=== PATIENT | female | born 1965 | race Caucasian/White ===

== ENCOUNTER 2017-07-31 10:01 | Emergency (ER) | payer OTHER ==
[~2017-07-31] VITALS: Ht 154.9 cm; Wt 86.2 kg
--- NOTE | 2017-07-31 10:02 | NUR ---
PT BIBA BLS TO ER BED 04
[2017-07-31 10:05] VITALS: BP 114/66
--- NOTE | 2017-07-31 10:09 | NUR ---
PATIENT PRESENTS TO ED WITH awoke this am with severe epigastric sharp pain with nausea . PT STATES . DENIES V/D; SKIN IS PINK/WARM/DRY; AAOX4 WITH EVEN AND STEADY GAIT; LUNGS CLEAR BL; HR EVEN AND REGULAR; PT DENIES ANY FEVER, CP, SOB, OR COUGH AT THIS TIME; PATIENT STATES PAIN OF 10/10 AT THIS TIME; VSS; PATIENT POSITIONED FOR COMFORT; HOB ELEVATED; BEDRAILS UP X2; BED DOWN. ER MD MADE AWARE OF PT STATUS.
[2017-07-31] MEDS: KETOROLAC 30 MG/ML VIAL IVP ONE (10:16)
--- NOTE | 2017-07-31 10:23 | NUR ---
MEDICATED WRITTEN---PT ADMITS TO HAVING SOME RELIEF S/P TORADOL PT WILL PROVIDE URINE SAMPLE
[2017-07-31] MEDS: DICYCLOMINE HCL LIQUID 20 MG, ALUMINUM HYD/MAG/SIMETHICONE 30 ML, LIDOCAINE VISCOUS 2% ... PO ONE ×3 (11:01)
--- NOTE | 2017-07-31 11:30 | NUR ---
Patient discharged with v/s stable. Written and verbal after care instructions given and explained. Patient alert, oriented and verbalized understanding of instructions. Ambulatory with to car. All questions addressed prior to discharge. ID band removed. Patient advised to follow up with PMD. Rx of MOTRIN/ZOFRAN/PRILOSEC given. Patient educated on indication of medication including possible reaction and side effects. Opportunity to ask questions provided and answered.
[2017-07-31 11:31] VITALS: BP 128/81
== END 2017-07-31 11:30 | disposition home or self-care (01) ==
LOC: MED 10:01
DX: R10.13 Epigastric pain (principal); R11.0 Nausea; F17.210 Nicotine dependence, cigarettes, uncomplicated
CPT/HCPCS: 81002; 81025; 96374; 99284; J1885

== ENCOUNTER 2018-06-04 11:26 | Emergency (ER) | payer OTHER ==
[~2018-06-04] VITALS: Ht 160 cm; Wt 74.2 kg
--- NOTE | 2018-06-04 11:45 | NUR ---
Pelon cordova in [facility] - 06/04/18 at 1153 by MEDRJJ PT AMB W/O TO ER BED 12
[2018-06-04 11:46] VITALS: BP 123/79
--- NOTE | 2018-06-04 11:51 | NUR ---
Patient to bed 12. RN evaluating patient at bedside.
--- NOTE | 2018-06-04 11:51 | NUR ---
BIB SELF. AAO X4 C/O OF L LEG STABBING PAIN RADIATING TO L HIP 10/10 X 2 WEEKS. DENIES TRAUMA OR INJURY. CAP REFILL <3 SECS. STEADY AMBULATE. HOB UP. BED RAILS UP X1. ON LOW BED POSITION, LOCKED. MD JEFFRIES MADE AWARE OF PT STATUS. Addendum: 06/04/18 at 1206 by [employer] BIB SELF. AAO X4 C/O OF L LEG STABBING PAIN RADIATING TO L HIP 10/10 X 2 WEEKS. DENIES TRAUMA OR INJURY. CAP REFILL <3 SECS. NO DISCOLORATION. STEADY AMBULATION. HOB UP. BED RAILS UP X1. ON LOW BED POSITION, LOCKED. MD JEFFRIES MADE AWARE OF PT STATUS.
[2018-06-04] MEDS ORDERED: IBUP-2213 PO (11:54)
--- NOTE | 2018-06-04 12:23 | NUR ---
Dr. Anthony evaluating patient at bedside.
[2018-06-04] MEDS ORDERED: KETOROLAC 60 MG/2 ML VIAL IM ONE (12:35)
[2018-06-04] MEDS ORDERED: traMADol 50 MG TAB PO ONE (12:35)
[2018-06-04] MEDS ORDERED: hydrOXYzine HCL 25 MG TAB PO ONE (12:35)
--- NOTE | 2018-06-04 12:51 | NUR ---
Patient returned from XRAY. RN re-evaluating patient at bedside.
--- NOTE | 2018-06-04 13:05 | NUR ---
pt was not able to provide urine; encourage to attempt again
[2018-06-04 13:39] LABS: APPEARANCE,URINE CLEAR (CLEAR); BILIRUBIN,URINE NEGATIVE (NEGATIVE); BLOOD, URINE TRACE-I (NEGATIVE); COLOR,URINE YELLOW (YELLOW); LEUKOCYTE ESTERASE ,URINE NEGATIVE (NEGATIVE); NITRITE, URINE NEGATIVE (NEGATIVE); UGLUCOSE NEGATIVE (NEGATIVE)
[2018-06-04 13:51] LABS: WBC,URINE 0-5 /HPF (0-5)
[2018-06-04 13:53] VITALS: BP 121/72
== END 2018-06-04 13:54 | disposition home or self-care (01) ==
LOC: MED 11:26
DX: M54.42 Lumbago with sciatica, left side (principal); M54.41 Lumbago with sciatica, right side; K59.00 Constipation, unspecified; Z79.899 Other long term (current) drug therapy
CPT/HCPCS: 72100; 81001; 96372; 99284; J1885

== ENCOUNTER 2018-09-07 08:47 | Emergency (ER) | payer OTHER ==
[~2018-09-07] VITALS: Ht 158.8 cm; Wt 74.8 kg
[~2018-09-07 08:47] MED LIST: IBUP-2213 PO
[2018-09-07 08:50] VITALS: BP 110/73
--- NOTE | 2018-09-07 08:54 | NUR ---
PT AMB TO BED 11 WITH STEADY GAIT
[2018-09-07] MEDS ORDERED: cefTRIAXone 2,000 MG in DEXTROSE 5% 100 ML IV ONE (09:05)
[2018-09-07] MEDS ORDERED: NACL 0.9% 1,000 ML IV ONE (09:05)
[2018-09-07] MEDS ORDERED: ACETAMINOPHEN EXTRA STRENGTH 500 MG TAB PO ONE (09:05)
[2018-09-07] MEDS ORDERED: MORPHINE SULFATE 4 MG/ML SYR IVP ONE (09:05)
[2018-09-07] MEDS ORDERED: KETOROLAC 15 MG/ML VIAL IVP ONE (09:05)
--- NOTE | 2018-09-07 09:09 | NUR ---
PT BIB SELF TO THE ED WITH THE CHIEF C/O LOWER BACK PAIN RADIATING TO LOWER ABDOMEN SINCE YESTERDAY. PT REPORTS PAIN DURING URINATION. DENIES BLOOD IN URINE. PT HAD FEVER 102 DEGREE F THIS MORNING. TOOK IBUPROFEN AROUND 0500 AM. AFEBRILE AT THIS TIME. DENIES N/V/D. DENIES ANY OTHER PROBLEM NOW. STATES PAIN 11/13.
--- NOTE | 2018-09-07 09:11 | NUR ---
PT EVALUATED BY MERVIN LEA.
[2018-09-07] MEDS ORDERED: ONDANSETRON 4 MG/2 ML VIAL IVP ONE (09:15)
[2018-09-07] MEDS ORDERED: cefTRIAXone 2,000 MG VIAL ONE (09:27)
[2018-09-07 09:37] LABS: BASOPHILS % (AUTO) 0.4 % (0.0-2.0); EOSINOPHILS # (AUTO) 0.2 K/uL (0-0.4); EOSINOPHILS % (AUTO) 2.5 % (0.0-4.0); HEMATOCRIT 38.6 % (36-48); HEMOGLOBIN 12.7 g/dL (12.0-16.0); LYMPHOCYTES # (AUTO) 2.3 K/uL (2.5-16.5); LYMPHOCYTES % (AUTO) 32.7 % (20.5-51.1); MEAN CORPUSCULAR HEMOGLOBIN 28 pg (27-31); MEAN CORPUSCULAR HGB CONC 33 g/dL (33-37); MEAN CORPUSCULAR VOLUME 86.2 fL (80-94); MONOCYTES # (AUTO) 0.5 K/uL (0.8-1.0); MONOCYTES % (AUTO) 7.1 % (1.7-9.3); NEUTROPHILS % (AUTO) 57.3 % (42.2-75.2); PLATELET COUNT (AUTO) 201 K/uL (140-450); RED BLOOD CELL COUNT(AUTO) 4.48 MIL/uL (4.20-5.40); RED CELL DISTRIBUTION WIDTH 14.3 % (11.6-13.7)
[2018-09-07 09:43] LABS: APPEARANCE,URINE HAZY (CLEAR); BILIRUBIN,URINE NEGATIVE (NEGATIVE); BLOOD, URINE 2+ (NEGATIVE); COLOR,URINE YELLOW (YELLOW); LEUKOCYTE ESTERASE ,URINE NEGATIVE (NEGATIVE); NITRITE, URINE NEGATIVE (NEGATIVE); PH,URINE 5.5 (5.0-9.0); UGLUCOSE NEGATIVE (NEGATIVE)
[2018-09-07 09:45] LABS: ANION GAP 15.8 (8-16); CARBON DIOXIDE 20.9 mmol/L (21-32); CREATININE 0.6 mg/dL (0.6-1.3); POTASSIUM 3.7 mmol/L (3.5-5.1)
[2018-09-07 09:50] LABS: WBC,URINE 0-5 /HPF (0-5)
[2018-09-07 09:51] LABS: ALBUMIN 3.2 g/dL (3.4-5.0); TOTAL BILIRUBIN 0.3 mg/dL (0.0-1.0)
--- NOTE | 2018-09-07 10:45 | NUR ---
PT APPEARS TO BE RELAXED RESTING IN BED. STATES PT HAS GONE NOW.
--- NOTE | 2018-09-07 10:51 | NUR ---
PT BEING RE-EVALUATED BY MERVIN LEA AT THIS TIME.
--- NOTE | 2018-09-07 11:35 | NUR ---
Patient discharged with v/s stable. Written and verbal after care instructions given and explained. Patient alert, oriented and verbalized understanding of instructions. Ambulatory with steady gait. All questions addressed prior to discharge. ID band removed. Patient advised to follow up with PMD. Rx of LEVOFLOXACIN given. Patient educated on indication of medication including possible reaction and side effects. Opportunity to ask questions provided and answered.
[2018-09-07 11:36] VITALS: BP 126/70
== END 2018-09-07 11:35 | disposition home or self-care (01) ==
LOC: MED 08:47
DX: R10.9 Unspecified abdominal pain (principal); R50.9 Fever, unspecified; R11.0 Nausea; R30.0 Dysuria; Z79.899 Other long term (current) drug therapy
CPT/HCPCS: 36415; 80053; 81001; 81025; 83690; 85025; 87040; 87086; 96365; 96375; 99283; J0696; J1885; J2270; J2405; J7030

== ENCOUNTER 2019-09-05 08:26 | Emergency (ER) | payer OTHER ==
[~2019-09-05] VITALS: Ht 154.9 cm; Wt 83.0 kg
[2019-09-05 08:29] VITALS: BP 108/72
--- NOTE | 2019-09-05 08:34 | NUR ---
PT AMBULATED TO BED 6.
--- NOTE | 2019-09-05 08:59 | NUR ---
54 Y/O FEMALE C/O BILAT FOOT PAIN ON BOTTOM OF FEET. PT STATES PAIN HAS BEEN ON/OFF FOR ONE WEEK, BUT LAST NIGHT GOT WORSE, TO THE POINT WHERE PT CAN NOT WALK. SKIN INTACT. CALLUSES NOTED ON BOTTOM OF BILAT FEET. 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
[2019-09-05] MEDS ORDERED: IBUPROFEN 600 MG TAB PO ONE (09:20)
[2019-09-05 09:39] VITALS: BP 108/72
== END 2019-09-05 09:39 | disposition home or self-care (01) ==
LOC: MED 08:26
DX: M72.2 Plantar fascial fibromatosis (principal)
CPT/HCPCS: 99282

== ENCOUNTER 2020-03-25 14:24 | Inpatient (IN) | payer OTHER, SELFPAY ==
[~2020-03-25] VITALS: Ht 154.9 cm; Wt 71.7 kg
[2020-03-25 14:33] VITALS: BP 114/60
--- NOTE | 2020-03-25 14:39 | NUR ---
Patient ambulated to bed 11. RN evaluating patient at bedside.
--- NOTE | 2020-03-25 14:51 | NUR ---
54 Y/O FEMALE C/O RIGHT LOWER QUADRANT PAIN X1 WEEK. SUDDEN ONSET. DENIES ANY N/V/D. LAST BM WAS 3 HOURS AGO AND NORMAL PER PATIENT. BOWEL SOUNDS NORMOACTIVE IN ALL QUADRANTS. ABD IS TENDER TO TOUCH, NON DISTENDED, NO REBOUND TENDERNESS NOTED. DENIES ANY COUGH/SOB/FEVER. PATIENT HAS BEEN SELF MEDICATING WITH IBUPROFEN AT HOME WITH NO RELIEF. SKIN IS COOL/DRY. CAP REFILL <3. RESP EVEN AND UNLABORED
[2020-03-25] MEDS ORDERED: NACL 0.9% 1,000 ML IV ONE (15:25)
[2020-03-25] MEDS ORDERED: KETOROLAC 30 MG/ML VIAL IVP ONE (15:25)
--- NOTE | 2020-03-25 15:54 | NUR ---
CT CONSENT SIGNED AT BEDSIDE. LABS DRAWN AND GIVEN TO MEDICAL COLLECTOR
[2020-03-25 16:01] LABS: BASOPHILS # (AUTO) 0.1 K/uL (0.00-0.22); BASOPHILS % (AUTO) 0.9 % (0.0-2.0); EOSINOPHILS # (AUTO) 0.4 K/uL (0-0.4); HEMOGLOBIN 12.9 g/dL (12.0-16.0); LYMPHOCYTES # (AUTO) 3.1 K/uL (2.5-16.5); LYMPHOCYTES % (AUTO) 33.7 % (20.5-51.1); MEAN CORPUSCULAR HEMOGLOBIN 28 pg (27-31); MEAN CORPUSCULAR HGB CONC 33 g/dL (33-37); MEAN CORPUSCULAR VOLUME 86.2 fL (80-94); MONOCYTES # (AUTO) 0.6 K/uL (0.8-1.0); MONOCYTES % (AUTO) 6.1 % (1.7-9.3); NEUTROPHILS % (AUTO) 55.3 % (42.2-75.2); PLATELET COUNT (AUTO) 189 K/uL (140-450); RED BLOOD CELL COUNT(AUTO) 4.53 MIL/uL (4.20-5.40); RED CELL DISTRIBUTION WIDTH 14.5 % (11.6-13.7); WHITE BLOOD COUNT (AUTO) 9.1 K/uL (4.8-10.8)
[2020-03-25 16:04] LABS: APPEARANCE,URINE HAZY (CLEAR); BILIRUBIN,URINE NEGATIVE (NEGATIVE); BLOOD, URINE 1+ (NEGATIVE); COLOR,URINE YELLOW (YELLOW); LEUKOCYTE ESTERASE ,URINE NEGATIVE (NEGATIVE); NITRITE, URINE POSITIVE (NEGATIVE); UGLUCOSE NEGATIVE (NEGATIVE)
[2020-03-25 16:18] LABS: PROTHROMBIN TIME 9.7 secs (10.8-13.4)
[2020-03-25 16:22] LABS: RBC,URINE 0-5 /HPF (0-5); WBC,URINE 0-5 /HPF (0-5)
[2020-03-25] MEDS ORDERED: MORPHINE SULFATE 4 MG/ML SYR IVP ONE (16:45)
[2020-03-25] MEDS ORDERED: ONDANSETRON 4 MG/2 ML VIAL IVP ONE (16:45)
[2020-03-25 17:25] LABS: ALBUMIN 3.5 g/dL (3.4-5.0); ANION GAP 15.6 (8-16); CARBON DIOXIDE 21.8 mmol/L (21-32); CREATININE 0.6 mg/dL (0.6-1.3); POTASSIUM 3.4 mmol/L (3.5-5.1); TOTAL BILIRUBIN 0.2 mg/dL (0.0-1.0)
--- NOTE | 2020-03-25 17:42 | NUR ---
PT TAKEN TO CT VIA W/C.
[2020-03-25] MEDS ORDERED: ONDANSETRON 4 MG/2 ML VIAL IVP PRN ×3 (19:25→21:05)
--- NOTE | 2020-03-25 19:28 | NUR ---
RECIVED REPORT FROM HERO CARR. TRANSFER OF CARE.
--- NOTE | 2020-03-25 19:32 | NUR ---
DR. ELLIS AT BEDSIDE.
--- NOTE | 2020-03-25 20:03 | NUR ---
RADHA SWAB COLLECTED AND GIVEN TO FREIGHT TRUCKER.
--- NOTE | 2020-03-25 20:19 | NUR ---
PT LAST ORAL INTAKE WAS AT 1330, PER PT
--- NOTE | 2020-03-25 20:44 | NUR ---
DR. ROSALES AT BEDSIDE EXPLAIN SURGICAL PROCEDURE. CONSENT SIGNED.
--- NOTE | 2020-03-25 20:52 | NUR ---
GAVE REPORT TO ANAHI GALDAMEZ RN, TRANSFER OF CARE GIVEN. PATIENT TAKEN TO OR FOR SURGERY.
[2020-03-25] MEDS ORDERED: LIDOCAINE 1% 500 MG/50 ML VIAL ONE (20:54)
[2020-03-25] MEDS ORDERED: BUPIVACAINE-MPF/EPI 0.25% 10 ML VIAL INJ ONE (20:54)
[2020-03-25] MEDS ORDERED: PIPERACILLIN/TAZOBACTAM 3.375 GM VIAL IV ONE (20:59)
[2020-03-25] MEDS ORDERED: HYDROmorphone 1 MG/ML AMP IVP PRN (21:00)
[2020-03-25] MEDS ORDERED: HYDROcodone/APAP 5/325 MG 1 TAB TAB PO PRN (21:00)
[2020-03-25] MEDS ORDERED: MEPERIDINE 25 MG/ML SYR IVP PRN (21:05)
[2020-03-25] MEDS ORDERED: diphenhydrAMINE 50 MG/ML VIAL IVP PRN (21:05)
[2020-03-25] MEDS ORDERED: SUGAMMADEX SODIUM 200 MG/2 ML VIAL IV ONE (21:18)
[2020-03-25] MEDS ORDERED: SUCCINYLCHOLINE CHLORIDE 200 MG/10 ML VIAL IVP ONE (21:18)
[2020-03-25] MEDS ORDERED: PROPOFOL 200 MG/20 ML VIAL IV ONE (21:18)
[2020-03-25] MEDS ORDERED: ROCURONIUM 50 MG/5 ML VIAL IV ONE (21:18)
[2020-03-25] MEDS ORDERED: SEVOFLURANE 250 ML BTL INH ONE (21:18)
[2020-03-25] MEDS ORDERED: MIDAZOLAM 2 MG/2 ML VIAL ONE (21:18)
[2020-03-25] MEDS ORDERED: METOCLOPRAMIDE 10 MG/2 ML INJ VIAL ONE (21:18)
[2020-03-25] MEDS ORDERED: fentaNYL citrate 0.05 MG/ML VIAL ONE (21:18)
[2020-03-25] MEDS ORDERED: DEXAMETHASONE 4 MG/ML VIAL ONE (21:18)
[2020-03-25] MEDS ORDERED: LIDOCAINE 2% 100 MG/5 ML SYR IVP ONE (21:18)
[2020-03-25] MEDS ORDERED: ONDANSETRON 4 MG/2 ML VIAL ONE (21:18)
[2020-03-25] MEDS ORDERED: HYDROmorphone PFS 2 MG/ML SYR ONE (22:40)
[2020-03-25] MEDS: HYDROmorphone 1 MG/ML AMP IVP PRN ×2 (22:43→22:53)
--- NOTE | 2020-03-25 23:23 | NUR ---
RECEIVED BEDSIDE REPORT FROM HARRIS MACHINE STAPLER. PT IS AAOX4. ARABIC V[place]UELAN SPEAKING. RESPIRATIONS ARE EQUAL AND UNLABORED. C/O ABD PAIN X5 DAYS. DX A APPENDICITIS. PT IS S/P LAP APPY WITH 3 SURGICAL INCISION CLOSED WITH DERMA WALLS NO S/S OF INFECTIONS NO DRAINAGE NOTED. ABD IS SOFT, BOWEL SOUNDS ARE ACTIVE X4. LBM YESTERDAY. PICTURES TAKEN NOW. PT IS FROM HOME DENIES ANY RECENT TRAVEL OR CONTACT WITH SICK FAMILY OR FRIENDS.RESPIRATIONS ARE EQUAL AND UNLABORED ON ROOM AIR. PT ON STANDARD ISOLATION. MRSA SWAB OBTAINED AND SENT TO LAB. ORIENTED PT TO ROOM, STAFF, CALL LIGHT, BROUGHT PT ICE CHIPS PER REQUEST. IV ON RAC 20G SL. POC DISCUSSED WITH PT. CALL LIGHT IS WITHIN REACH. WILL CONTINUE TO MONITOR.
[2020-03-25] MEDS: NACL 0.9% 1,000 ML IV SCH (23:53)
[2020-03-25] MEDS: LACTATED RINGERS 1,000 ML IV SCH (23:54)
[2020-03-25] MEDS: PIPERACILLIN/TAZOBACTAM 3.375 GM in DEXTROSE 5% 50 ML IV SCH (23:54)
[2020-03-26] VITALS: BP 91/52
[2020-03-26] MEDS: MORPHINE SULFATE 2 MG/ML SYR IVP PRN ×2 (00:02→10:26)
[2020-03-26] MEDS: FAMOTIDINE 20 MG/2 ML VIAL IVP SCH ×2 (00:02→08:46)
--- NOTE | 2020-03-26 00:02 | NUR ---
ADMINISTERED PRN MORPHINE FOR ABD PAIN 6/10 PER ORDERS.PT TOLERATED WELL. ALL SAFETY MEASURES ARE IN PLACE. WILL CONTINUE TO MONITOR.
--- NOTE | 2020-03-26 02:36 | NUR ---
ROUNDS MADE. PT IS SLEEPING COMFORTABLY IN BED WITH EYES CLOSED. CHEST RISE AND FALL NOTED. NO S/S OF DISTRESS. WILL CONTINUE TO MONITOR.
[2020-03-26] MEDS ORDERED: PIPERACILLIN/TAZOBACTAM 3.375 GM VIAL IV ONE (03:51)
[2020-03-26 04:00] VITALS: BP 90/50
[2020-03-26] MEDS: LACTATED RINGERS 1,000 ML IV SCH ×2 (04:00→13:45)
[2020-03-26] MEDS: PIPERACILLIN/TAZOBACTAM 3.375 GM in DEXTROSE 5% 50 ML IV SCH ×2 (04:00→13:29)
[2020-03-26] MEDS: NACL 0.9% 1,000 ML IV SCH ×2 (04:00→15:28)
--- NOTE | 2020-03-26 04:00 | NUR ---
VITAL SIGNS ARE WITHIN NORMAL LIMITS. ALL SAFETY MEASURES ARE IN PLACE. WILL CONTINUE TO MONITOR.
--- NOTE | 2020-03-26 06:02 | NUR ---
ASSISTED PT TO BATHROOM PT DENIES ANY DIZZINESS, LIGHTHEADEDNESS. PT WITH ABD PAIN 6/10 ADMINISTERED PRN NORCO PER ORDERS. PT TOLERATED WELL. CALL LIGHT IS WITHIN REACH.
--- NOTE | 2020-03-26 07:36 | NUR ---
GAVE BEDSIDE REPORT TO DAY RN. PT ENDORSED IN STABLE CONDITION.
--- NOTE | 2020-03-26 07:42 | NUR ---
RECEIVED REPORT FROM NIGHTSHIFT NURSE. PT RESTING IN BED. ABLE TO MAKE NEEDS KNOWN. RESPIRATIONS EVEN AND UNLABORED WITH NO SOB OR RESPIRATORY DISTRESS. SKIN WARM AND DRY TO TOUCH. IV SITE IN RAC 20G IS CLEAN, DRY, AND INTACT. SAFETY MEASURES IN PLACE. WILL CONTINUE TO MONITOR
[2020-03-26 08:00] VITALS: BP 114/71
[2020-03-26] MEDS ORDERED: ENOXAPARIN 40 MG/0.4 ML SYR SUBQ SCH (09:00)
--- NOTE | 2020-03-26 09:01 | NUR ---
ADMINISTERED SCHED MED PRESCRIBED PER MD ORDER. PT TOLERATED WELL. MEDICATION EDUCATION PERFORMED. PT VERBALIZED UNDERSTANDING. SAFETY MEASURES IN PLACE. WILL CONTINUE TO MONITOR
[2020-03-26 09:16] LABS: BASOPHILS % (AUTO) 0.1 % (0.0-2.0); HEMOGLOBIN 11.8 g/dL (12.0-16.0); LYMPHOCYTES # (AUTO) 0.7 K/uL (2.5-16.5); LYMPHOCYTES % (AUTO) 7.5 % (20.5-51.1); MEAN CORPUSCULAR HEMOGLOBIN 28 pg (27-31); MEAN CORPUSCULAR HGB CONC 33 g/dL (33-37); MONOCYTES # (AUTO) 0.1 K/uL (0.8-1.0); MONOCYTES % (AUTO) 1.1 % (1.7-9.3); NEUTROPHILS # (AUTO) 8.9 K/uL (1.8-7.7); NEUTROPHILS % (AUTO) 91.3 % (42.2-75.2); PLATELET COUNT (AUTO) 161 K/uL (140-450); RED BLOOD CELL COUNT(AUTO) 4.13 MIL/uL (4.20-5.40); RED CELL DISTRIBUTION WIDTH 14.5 % (11.6-13.7); WHITE BLOOD COUNT (AUTO) 9.8 K/uL (4.8-10.8)
--- NOTE | 2020-03-26 09:46 | NUR ---
PATIENT HAS BEEN SCREENED AND CATEGORIZED LOW NUTRITION RISK. PATIENT WILL BE SEEN WITHIN 7 DAYS OF ADMISSION. 03/31/[address]
[2020-03-26 10:23] LABS: ALBUMIN 3.1 g/dL (3.4-5.0); ANION GAP 15.2 (8-16); CARBON DIOXIDE 20.7 mmol/L (21-32); CREATININE 0.7 mg/dL (0.6-1.3); MAGNESIUM 2.1 mg/dL (1.8-2.4); POTASSIUM 3.9 mmol/L (3.5-5.1); TOTAL BILIRUBIN 0.5 mg/dL (0.0-1.0)
--- NOTE | 2020-03-26 10:26 | NUR ---
PT COMPLAINED OF SEVERE PAIN. PRN MORPHINE ADMINISTERED PRESCRIBED PER MD ORDER. MEDICATION EDUCATION PERFORMED. PT VERBALIZED UNDERSTANDING. SAFETY MEASURES IN PLACE. WILL CONTINUE TO MONITOR
--- NOTE | 2020-03-26 10:33 | NUR ---
SOCIAL WORK NOTE: Patient's Orientation Unable To Assess Information Provided By EVELINA SANZ - DAUGHTER Comments SW WAS UNABLE TO MEET PATIENT AT BEDSIDE. SW CONTACTED PATIENT'S WHO PASSED PHONE TO PATIENT'S DAUGHTER. SW COMPLETED ASSESSMENT WITH DAUGHTER. Yardage Control Operator, Realtionship and Phone Number CHUCKIE SANZ [phone] EVELINA SANZ DAUGHTER [phone] Healthcare Power of Internship Coordinator No Does Patient Have a POLST No Identifying Problems No Social Work Triggers Is A Social Work Consult Needed No Mandate Report Filed No Explanation Of Identifying Problems PATIENT IS A 54-YEAR-OLD FEMALE ADMITTED FOR APPENDICITIS. PATIENT HAS NO REPORTED PMHX. Admitted From Home Pre-Admission Level Of Functioning Status Independent/Ambulatory Prior Resources/Services Used In Last 12 Months No Prior Resources Used Prior DME No Prior DME Used Dialysis Comments N/A Living Situation Lives With Family House Patient Had Caregiver No Home Support No Caregiver Issues Financial Issues No Known Financial Issue Referral To The Financial Counselor Needed No Factors/Needs No D/C Needs Identified Pt/Rep Participated In Discharge Plan Yes Patient/Family Agress With Discharge Plan Yes Discharge Plan Comments TENTATIVE DISCHARGE PLAN IS FOR PATIENT TO RETURN HOME. DC Plan Status Initiated
--- NOTE | 2020-03-26 12:15 | NUR ---
PT RESTING IN BED. ABLE TO MAKE NEEDS KNOWN. RESPIRATIONS EVEN AND UNLABORED WITH NO SOB OR RESPIRATORY DISTRESS. SKIN WARM AND DRY TO TOUCH. SAFETY MEASURES IN PLACE. WILL CONTINUE TO MONITOR
--- NOTE | 2020-03-26 16:13 | NUR ---
DISCHARGE PLANNING: PER DR. PEÑA WILL DC PATIENT TODAY. NO NEEDS. CHARGE NURSE AWARE.
[2020-03-26 16:19] VITALS: BP 114/71
--- NOTE | 2020-03-26 16:30 | NUR ---
WENT OVER DISCHARGE INSTRUCTIONS WITH PATIENT. PT SIGNED APPROPRIATE DOCUMENTS. PT HAS SCRIPT FOR [place]. INSTRUCTED PT TO F/U W/ DR. ROSALES. PATIENT VERBALIZED UNDERSTANDING. INSTRUCTED PT TO VISIT ED FOR ANY SIGNS OF DISTRESS. PT VERBALIZED UNDERSTANDING. REMOVED INTACT IV CANNULA AND ID BAND. PT UP TO DATE ON VACCINATIONS. GAVE PT SURGICAL MASK. PT REFUSED PICTURES OF WOUND FROM LAP APPY. PT CHANGED INTO HER OWN CLOTHING. PT IS STABLE TO GO HOME
== END 2020-03-26 16:30 | disposition home or self-care (01) | DRG 234 ==
LOC: MED 14:24 → MTU 19:32
PROVIDERS: ADMIT Hospitalist; ATTEND Hospitalist
PROC: 0DTJ4ZZ Resection of Appendix, Percutaneous Endoscopic Approach (ICD-10-PCS; principal; 2020-03-25 21:30)
DX: K35.80 Unspecified acute appendicitis (principal); E66.01 Morbid (severe) obesity due to excess calories; Z20.822 Contact with and (suspected) exposure to COVID-19; Z68.29 Body mass index [BMI] 29.0-29.9, adult; Z90.49 Acquired absence of other specified parts of digestive tract; F17.200 Nicotine dependence, unspecified, uncomplicated
CPT/HCPCS: 36415; 80053; 81001; 83605; 83735; 84484; 85025; 85610; 85730; 87040; 87081; 88304; 96374; 96375; 99285; J0330; J0694; J1100; J1170; J1650; J1885; J2001; J2250; J2270; J2405; J2543; J2704; J2765; J3010; J3490; J7030; J7060; Q9967

== ENCOUNTER 2020-04-05 21:11 | Emergency (ER) | payer OTHER, SELFPAY ==
[~2020-04-05] VITALS: Ht 157.5 cm; Wt 68.0 kg
[2020-04-05 21:22] VITALS: BP 147/83
--- NOTE | 2020-04-05 21:22 | NUR ---
to bed ambulatory
--- NOTE | 2020-04-05 21:30 | NUR ---
TO BED 4, AMBULATORY, FROM TRIAGE WITH C/O LEFT WRIST PAIN S/P FALL 5 HOURS AGO. DECREASED ROM WITH NO OBVIOUS DEFORMITY NOTED.
[2020-04-05] MEDS: KETOROLAC 60 MG/2 ML VIAL IM ONE (21:54)
--- NOTE | 2020-04-05 22:20 | NUR ---
WRIST AND FOREARM SPLINT PLACED ON PT L WRIST, FASTENED TO SIZE. +CSM
[2020-04-05 22:24] VITALS: BP 147/83
== END 2020-04-05 22:24 | disposition home or self-care (01) ==
LOC: MED 21:33
DX: S63.502A Unspecified sprain of left wrist, initial encounter (principal); W18.39XA Other fall on same level, initial encounter; Y93.89 Activity, other specified; Y92.89 Other specified places as the place of occurrence of the external cause; Y99.8 Other external cause status
CPT/HCPCS: 29125; 73110; 96372; 99283; J1885

== ENCOUNTER 2020-07-09 17:10 | Emergency (ER) | payer OTHER ==
[~2020-07-09] VITALS: Ht 157.5 cm; Wt 76.2 kg
[2020-07-09 17:15] VITALS: BP 147/83
--- NOTE | 2020-07-09 17:54 | NUR ---
55 Y/O FEMALE C/O NOSE PAIN, 12/13 S/P FALL TODAY AFTER RUNNING WITH DOG. PATIENT DENIES ANY LOC. NOSE IS MILDLY SWOLLEN, NO ACTIVE BLEEDING AT THIS TIME. PATIENT IS AAOX4. GCS 15. AMBULATORY WITH STEADY GAIT
[2020-07-09] MEDS ORDERED: HYDROcodone/APAP 5/325 MG 1 TAB TAB PO ONE (17:55)
[2020-07-09] MEDS ORDERED: IBUPROFEN 600 MG TAB PO ONE (17:55)
[2020-07-09] MEDS ORDERED: IBUP-2213 PO (18:42)
[2020-07-09] MEDS ORDERED: TRAM50TA1 PO (18:42)
[2020-07-09 18:58] VITALS: BP 147/83
--- NOTE | 2020-07-09 18:59 | NUR ---
Patient discharged with v/s stable. Written and verbal after care instructions given and explained. Patient alert, oriented and verbalized understanding of instructions. Ambulatory with steady gait. All questions addressed prior to discharge. ID band removed. Patient advised to follow up with PMD. Rx of TRAMADOL, IBUPROFEN given. Patient educated on indication of medication including possible reaction and side effects. Opportunity to ask questions provided and answered.
== END 2020-07-09 18:59 | disposition home or self-care (01) ==
LOC: MED 17:10
DX: S02.2XXA Fracture of nasal bones, initial encounter for closed fracture (principal); W19.XXXA Unspecified fall, initial encounter; Y93.89 Activity, other specified; Y92.89 Other specified places as the place of occurrence of the external cause; Y99.8 Other external cause status
CPT/HCPCS: 70160; 99283

== ENCOUNTER 2020-11-18 18:25 | Emergency (ER) | payer OTHER ==
[~2020-11-18] VITALS: Ht 157.5 cm; Wt 59.0 kg
[~2020-11-18 18:25] MED LIST changes: +TRAM50TA1 PO
[2020-11-18 18:45] VITALS: BP 109/67
[2020-11-18] MEDS ORDERED: KETOROLAC 30 MG/ML VIAL IVP ONE (19:20)
[2020-11-18] MEDS ORDERED: NACL 0.9% 2,000 ML IV SCH (19:20)
[2020-11-18] MEDS ORDERED: ACETAMINOPHEN EXTRA STRENGTH 500 MG TAB PO ONE (19:20)
--- NOTE | 2020-11-18 19:28 | NUR ---
RECHECKED TEMP. = 102.7, GIVEN COLD COMPRESS UNDER ARMPITS AND ON FOREHEAD.
--- NOTE | 2020-11-18 19:40 | NUR ---
PT. IS A 55 Y/O FEMALE THAT CAME INTO ED WITH C/O OF FEVER FOR 4-5 DAYS. UPON ARRIVAL PT. HAS 102.7 TEMPERATURE. DENIES N/V/D. PT. ALSO STATES RIGHT FLANK PAIN WITH HEAD PAIN AND SPINE PAIN. PT. RATES PAIN 10/10 ON THE PAIN SCALE AT THIS TIME. SKIN IS PINK/WARM/DRY; AAOX4 WITH EVEN AND STEADY GAIT; HR EVEN AND REGULAR; PT DENIES ANY FEVER, CP, SOB, OR COUGH AT THIS TIME; VSS; PATIENT POSITIONED FOR COMFORT; HOB ELEVATED; BEDRAILS UP X2; BED DOWN. ER MD MADE AWARE OF PT STATUS PMH: DENIES ALLERGIES: NKA .
[2020-11-18 19:51] LABS: BASOPHILS % (AUTO) 0.4 % (0.0-2.0); EOSINOPHILS % (AUTO) 0.1 % (0.0-4.0); HEMATOCRIT 38.6 % (36-48); HEMOGLOBIN 12.9 g/dL (12.0-16.0); LYMPHOCYTES # (AUTO) 1.4 K/uL (2.5-16.5); MEAN CORPUSCULAR HEMOGLOBIN 29 pg (27-31); MEAN CORPUSCULAR HGB CONC 34 g/dL (33-37); MEAN CORPUSCULAR VOLUME 86.9 fL (80-94); MONOCYTES # (AUTO) 0.7 K/uL (0.8-1.0); MONOCYTES % (AUTO) 7.9 % (1.7-9.3); NEUTROPHILS # (AUTO) 6.3 K/uL (1.8-7.7); NEUTROPHILS % (AUTO) 74.6 % (42.2-75.2); PLATELET COUNT (AUTO) 184 K/uL (140-450); RED BLOOD CELL COUNT(AUTO) 4.45 MIL/uL (4.20-5.40); RED CELL DISTRIBUTION WIDTH 14.7 % (11.6-13.7); WHITE BLOOD COUNT (AUTO) 8.4 K/uL (4.8-10.8)
[2020-11-18 19:56] LABS: APPEARANCE,URINE CLOUDY (CLEAR); BILIRUBIN,URINE NEGATIVE (NEGATIVE); BLOOD, URINE 3+ (NEGATIVE); COLOR,URINE YELLOW (YELLOW); LEUKOCYTE ESTERASE ,URINE 1+ (NEGATIVE); NITRITE, URINE POSITIVE (NEGATIVE); PH,URINE 5.5 (5.0-9.0); UGLUCOSE NEGATIVE (NEGATIVE)
--- NOTE | 2020-11-18 19:57 | NUR ---
EKG AT BEDSIDE
[2020-11-18 20:04] LABS: ALBUMIN 3.2 g/dL (3.4-5.0); ANION GAP 14.7 (8-16); CREATININE 0.7 mg/dL (0.6-1.3); TOTAL BILIRUBIN 0.3 mg/dL (0.0-1.0)
[2020-11-18 20:07] LABS: POTASSIUM 2.7 mmol/L (3.5-5.1)
[2020-11-18 20:08] LABS: RBC,URINE 80-100 /HPF (0-5)
--- NOTE | 2020-11-18 20:15 | NUR ---
PT TAKEN TO CT VIA RSHERRILL.
[2020-11-18] MEDS ORDERED: cefTRIAXone 1,000 MG VIAL ONE (20:18)
--- NOTE | 2020-11-18 20:34 | NUR ---
PT. BACK FROM CT.
[2020-11-18] MEDS ORDERED: POTASSIUM CHLORIDE 20% 40 MEQ/15 ML UDC PO ONE (20:50)
[2020-11-18] MEDS ORDERED: KCL 20 MEQ/WATER INJ PREMIX 200 ML IV ONE (20:50)
[2020-11-18] MEDS ORDERED: NACL 0.9% 500 ML IV ONE (22:40)
--- NOTE | 2020-11-18 22:40 | NUR ---
PER VIC HENSLEY, D/C SECOND BAG OF K-RIDER. PER PT. SHE STATES THAT SHE DOES NOT WANT SECOND BAG
[2020-11-18] MEDS ORDERED: ONDA-24 SL (22:41)
[2020-11-18] MEDS ORDERED: NAPR-54 PO (22:41)
[2020-11-18] MEDS ORDERED: CEPH-588 PO (22:41)
[2020-11-18] MEDS ORDERED: POTA-599 PO (22:41)
--- NOTE | 2020-11-18 22:54 | NUR ---
PT. AMBULATED TO BATHROOM WITH EVEN AND STEADY GAIT
[2020-11-18 23:35] VITALS: BP 110/68
--- NOTE | 2020-11-18 23:35 | NUR ---
Patient discharged with v/s stable. Written and verbal after care instructions given and explained. Patient alert, oriented and verbalized understanding of instructions. Ambulatory with steady gait. All questions addressed prior to discharge. ID band removed. Patient advised to follow up with PMD. Rx of KEFLEX, NAPROSYN, ZOFRAN ODT, AND POTASSIUM CHLORIDE given. Patient educated on indication of medication including possible reaction and side effects. Opportunity to ask questions provided and answered.
== END 2020-11-18 23:35 | disposition home or self-care (01) ==
LOC: MED 18:25
DX: N39.0 Urinary tract infection, site not specified (principal); E87.6 Hypokalemia
CPT/HCPCS: 36415; 70450; 71045; 74176; 80053; 81001; 83605; 84484; 85025; 87086; 93005; 96361; 96365; 96366; 96367; 96375; 99285; J0696; J1885; J3480; J7030; Q0092

== ENCOUNTER 2021-03-16 15:39 | Emergency (ER) | payer OTHER ==
[~2021-03-16] VITALS: Ht 154.9 cm; Wt 56.2 kg
[~2021-03-16 15:39] MED LIST changes: +CEPH-588 PO; +NAPR-54 PO; +ONDA-188 SL; +POTA-599 PO
[2021-03-16 17:08] VITALS: BP 123/80
--- NOTE | 2021-03-16 17:17 | NUR ---
TENT3
[2021-03-16] MEDS ORDERED: ACETAMINOPHEN EXTRA STRENGTH 500 MG TAB PO ONE (17:55)
[2021-03-16] MEDS ORDERED: NACL 0.9% 500 ML IV ONE (17:55)
[2021-03-16] MEDS ORDERED: IBUPROFEN 400 MG TAB PO ONE (17:55)
[2021-03-16 18:31] LABS: BASOPHILS # (AUTO) 0.1 K/uL (0.00-0.22); BASOPHILS % (AUTO) 0.7 % (0.0-2.0); EOSINOPHILS % (AUTO) 0.4 % (0.0-4.0); HEMATOCRIT 42.1 % (36-48); LYMPHOCYTES # (AUTO) 1.2 K/uL (2.5-16.5); LYMPHOCYTES % (AUTO) 14.2 % (20.5-51.1); MEAN CORPUSCULAR HEMOGLOBIN 29 pg (27-31); MEAN CORPUSCULAR HGB CONC 33 g/dL (33-37); MEAN CORPUSCULAR VOLUME 85.8 fL (80-94); MONOCYTES # (AUTO) 0.5 K/uL (0.8-1.0); MONOCYTES % (AUTO) 5.8 % (1.7-9.3); NEUTROPHILS # (AUTO) 6.5 K/uL (1.8-7.7); NEUTROPHILS % (AUTO) 78.9 % (42.2-75.2); PLATELET COUNT (AUTO) 193 K/uL (140-450); RED CELL DISTRIBUTION WIDTH 14.8 % (11.6-13.7); WHITE BLOOD COUNT (AUTO) 8.2 K/uL (4.8-10.8)
[2021-03-16 18:51] LABS: ANION GAP 15.1 (8-16); CARBON DIOXIDE 22.1 mmol/L (21-32); CREATININE 0.7 mg/dL (0.6-1.3); POTASSIUM 4.2 mmol/L (3.5-5.1)
[2021-03-16 19:02] LABS: ALBUMIN 3.6 g/dL (3.4-5.0); BILIRUBIN,DIRECT 0.1 mg/dL (0.0-0.3); TOTAL BILIRUBIN 0.3 mg/dL (0.0-1.0)
[2021-03-16] MEDS ORDERED: cephALEXin 500 MG CAP PO ONE (19:25)
--- NOTE | 2021-03-16 19:25 | NUR ---
medicated as per ERMDs order, tolerated well.
[2021-03-16 20:15] VITALS: BP 112/70
[2021-03-16] MEDS ORDERED: CEPH-588 PO (20:20)
== END 2021-03-16 20:15 | disposition home or self-care (01) ==
LOC: MED 15:39
DX: N39.0 Urinary tract infection, site not specified (principal); Z79.899 Other long term (current) drug therapy
CPT/HCPCS: 36415; 71045; 80048; 80076; 81002; 81025; 83690; 84484; 85025; 93005; 99285

== ENCOUNTER 2021-11-10 13:42 | Emergency (ER) | payer OTHER ==
[~2021-11-10] VITALS: Ht 157.5 cm; Wt 65.8 kg
[2021-11-10 13:48] VITALS: BP 133/93
--- NOTE | 2021-11-10 14:10 | NUR ---
C/O DIZZINESS, 10/10 LOWER BACK PAIN, CHILLS, NAUSEA X TODAY.
[2021-11-10] MEDS: KETOROLAC 30 MG/ML VIAL IM ONE (15:37)
[2021-11-10 15:47] LABS: BASOPHILS # (AUTO) 0.1 K/uL (0.00-0.22); BASOPHILS % (AUTO) 0.7 % (0.0-2.0); EOSINOPHILS # (AUTO) 0.3 K/uL (0-0.4); EOSINOPHILS % (AUTO) 2.5 % (0.0-4.0); HEMATOCRIT 40.3 % (36-48); HEMOGLOBIN 13.5 g/dL (12.0-16.0); LYMPHOCYTES % (AUTO) 29.2 % (20.5-51.1); MEAN CORPUSCULAR HEMOGLOBIN 29 pg (27-31); MEAN CORPUSCULAR HGB CONC 34 g/dL (33-37); MEAN CORPUSCULAR VOLUME 85.9 fL (80-94); MONOCYTES # (AUTO) 0.6 K/uL (0.8-1.0); NEUTROPHILS # (AUTO) 6.3 K/uL (1.8-7.7); NEUTROPHILS % (AUTO) 61.6 % (42.2-75.2); PLATELET COUNT (AUTO) 198 K/uL (140-450); RED CELL DISTRIBUTION WIDTH 14.6 % (11.6-13.7); WHITE BLOOD COUNT (AUTO) 10.3 K/uL (4.8-10.8)
[2021-11-10 16:15] LABS: ANION GAP 13.5 (8-16); CARBON DIOXIDE 24.7 mmol/L (21-32); CREATININE 0.6 mg/dL (0.6-1.3); POTASSIUM 3.2 mmol/L (3.5-5.1)
[2021-11-10 16:28] LABS: BILIRUBIN,URINE NEGATIVE (NEGATIVE); BLOOD, URINE 2+ (NEGATIVE); LEUKOCYTE ESTERASE ,URINE NEGATIVE (NEGATIVE); NITRITE, URINE POSITIVE (NEGATIVE); UGLUCOSE TRACE (NEGATIVE)
[2021-11-10 16:29] LABS: APPEARANCE,URINE CLOUDY (CLEAR); COLOR,URINE AMBER (YELLOW)
[2021-11-10 16:45] LABS: RBC,URINE 0-5 /HPF (0-5)
[2021-11-10] MEDS ORDERED: CEPH-588 PO (16:52)
[2021-11-10] MEDS ORDERED: IBUP-2213 PO (16:52)
[2021-11-10 17:07] VITALS: BP 115/76
--- NOTE | 2021-11-10 17:07 | NUR ---
DPatient discharged with v/s stable. Written and verbal after care instructions FOR UTI given and explained. Patient alert, oriented and verbalized understanding of instructions. Ambulatory with steady gait. All questions addressed prior to discharge. ID band removed. Patient advised to follow up with PMD. Rx of IBURPROFEN AND KEFLEX given. Opportunity to ask questions provided and answered.
--- NOTE | 2021-11-10 17:32 | NUR ---
The patient's care was reviewed and supervised by Damaris Osborne RN.
== END 2021-11-10 17:07 | disposition home or self-care (01) ==
LOC: MED 13:42
DX: N39.0 Urinary tract infection, site not specified (principal); M54.50 Low back pain, unspecified
CPT/HCPCS: 36415; 80048; 81001; 84484; 85025; 87086; 93005; 96372; 99284; J1885

== ENCOUNTER 2022-02-14 12:11 | Emergency (ER) | payer OTHER ==
[~2022-02-14] VITALS: Ht 162.6 cm; Wt 74.8 kg
[~2022-02-14 12:11] MED LIST changes: +TRAM-748 PO; -TRAM50TA1 PO
[2022-02-14 12:21] VITALS: BP 126/77
[2022-02-14] MEDS ORDERED: BACITRACIN OINT 500 UNITS/GM PKT TP ONE (12:50)
[2022-02-14] MEDS ORDERED: IBUPROFEN 600 MG TAB PO ONE (12:50)
[2022-02-14] MEDS ORDERED: BACI1PAC6 TP (13:33)
[2022-02-14] MEDS ORDERED: ACET-10509 PO (13:33)
--- NOTE | 2022-02-14 13:59 | NUR ---
Patient discharged with v/s stable. Written and verbal after care instructions given and explained. Patient verbalized understanding. Ambulatory with steady gait. All questions addressed prior to discharge. Advised to follow up with PMD.
== END 2022-02-14 13:59 | disposition home or self-care (01) ==
LOC: MED 12:11
DX: S00.33XA Contusion of nose, initial encounter (principal); X58.XXXA Exposure to other specified factors, initial encounter; Y93.89 Activity, other specified; Y92.89 Other specified places as the place of occurrence of the external cause; Y99.8 Other external cause status
CPT/HCPCS: 70160; 99283

== ENCOUNTER 2022-04-30 16:33 | Emergency (ER) | payer OTHER ==
[~2022-04-30] VITALS: Ht 157.5 cm; Wt 67.1 kg
[~2022-04-30 16:33] MED LIST changes: +ACET-10509 PO; +BACI-416 TP
[2022-04-30 17:01] VITALS: BP 132/87
--- NOTE | 2022-04-30 17:41 | NUR ---
PT AMBULATED TO ER BED 4
--- NOTE | 2022-04-30 17:47 | NUR ---
PT PLACED IN ROOM AND GOWN
[2022-04-30] MEDS ORDERED: KETOROLAC 30 MG/ML VIAL IVP ONE (18:05)
[2022-04-30] MEDS ORDERED: ONDANSETRON 4 MG/2 ML VIAL IVP ONE (18:05)
[2022-04-30 18:21] LABS: BASOPHILS # (AUTO) 0.1 K/uL (0.00-0.22); BASOPHILS % (AUTO) 0.8 % (0.0-2.0); EOSINOPHILS # (AUTO) 0.2 K/uL (0-0.4); EOSINOPHILS % (AUTO) 2.9 % (0.0-4.0); HEMATOCRIT 39.2 % (36-48); HEMOGLOBIN 12.9 g/dL (12.0-16.0); LYMPHOCYTES # (AUTO) 2.7 K/uL (2.5-16.5); LYMPHOCYTES % (AUTO) 34.3 % (20.5-51.1); MEAN CORPUSCULAR HEMOGLOBIN 29 pg (27-31); MEAN CORPUSCULAR HGB CONC 33 g/dL (33-37); MEAN CORPUSCULAR VOLUME 86.4 fL (80-94); MONOCYTES # (AUTO) 0.5 K/uL (0.8-1.0); MONOCYTES % (AUTO) 6.6 % (1.7-9.3); NEUTROPHILS # (AUTO) 4.4 K/uL (1.8-7.7); NEUTROPHILS % (AUTO) 55.4 % (42.2-75.2); PLATELET COUNT (AUTO) 178 K/uL (140-450); RED BLOOD CELL COUNT(AUTO) 4.54 MIL/uL (4.20-5.40); RED CELL DISTRIBUTION WIDTH 14.5 % (11.6-13.7)
[2022-04-30 18:34] LABS: ALBUMIN 3.6 g/dL (3.4-5.0); ANION GAP 13.1 (8-16); CARBON DIOXIDE 24.5 mmol/L (21-32); CREATININE 0.6 mg/dL (0.6-1.3); POTASSIUM 3.6 mmol/L (3.5-5.1); TOTAL BILIRUBIN 0.3 mg/dL (0.0-1.0)
[2022-04-30] MEDS ORDERED: ONDANSETRON 4 MG/2 ML VIAL ONE (19:14)
[2022-04-30] MEDS ORDERED: KETOROLAC 30 MG/ML VIAL ONE (19:14)
[2022-04-30] MEDS ORDERED: IBUP-2213 PO (19:45)
[2022-04-30] MEDS ORDERED: ONDA-188 PO (19:45)
[2022-04-30] MEDS ORDERED: FAMO-90 PO (19:45)
--- NOTE | 2022-04-30 19:59 | NUR ---
56yo F here for abdominal pain. Awake alert and oriented x 4. Denies pain now. No nausea or vomiting. VS stable. No distress
--- NOTE | 2022-04-30 20:16 | NUR ---
Cleared to discharge home. Instructions given. Instructed to follow up c PMD. IV removed. Ambulated out of ED c steady gait. 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
[2022-04-30 20:18] VITALS: BP 119/63
[2022-04-30 20:19] LABS: APPEARANCE,URINE CLEAR (CLEAR); BILIRUBIN,URINE NEGATIVE (NEGATIVE); BLOOD, URINE TRACE-I (NEGATIVE); COLOR,URINE YELLOW (YELLOW); LEUKOCYTE ESTERASE ,URINE NEGATIVE (NEGATIVE); NITRITE, URINE NEGATIVE (NEGATIVE); PH,URINE 7.5 (5.0-9.0); UGLUCOSE NEGATIVE (NEGATIVE)
[2022-04-30 20:36] LABS: RBC,URINE 0-5 /HPF (0-5)
[2022-04-30 20:37] LABS: TRICHOMONAS,URINE None Seen /HPF (None Seen); WBC,URINE 0-5 /HPF (0-5); YEAST,URINE None Seen /HPF (None Seen)
== END 2022-04-30 20:18 | disposition home or self-care (01) ==
LOC: MED 16:33
DX: R10.11 Right upper quadrant pain (principal)
CPT/HCPCS: 36415; 76705; 80053; 81001; 83690; 85025; 96374; 96375; 99285; J1885; J2405; Q0092